=== PATIENT | male | born 1960 | race Caucasian/White ===

== ENCOUNTER 2018-05-10 09:10 | Day surgery (SDC) | payer BC ==
[2018-05-07 11:42] VITALS: BMI 28.8
[2018-05-10] MEDS ORDERED: BUPIVACAINE HCL/EPINEPHRINE/PF 30 ML VIAL IJ ONE (10:39)
[2018-05-10] MEDS ORDERED: MIDAZOLAM HCL 2 MG/2 ML SINGLE DOSE VIAL ONE ×3 (11:07)
[2018-05-10] MEDS ORDERED: PROPOFOL 20 ML ONE ×2 (11:27)
[2018-05-10] MEDS ORDERED: PROMETHAZINE HCL 25 MG/1 ML VIAL IVPUSH PRN (12:44)
[2018-05-10] MEDS ORDERED: oxyCODONE HCL 5 MG TABLET PO PRN (12:44)
[2018-05-10] MEDS ORDERED: ONDANSETRON 4 MG/2 ML VIAL IVPUSH PRN (12:44)
[2018-05-10 14:43] VITALS: TEMP 97.6
[2018-05-10 14:45] VITALS: BP 142/69; PULSE 64
--- NOTE | 2018-05-11 07:53 | OP ---
DATE OF OPERATION: 05/10/2018 SURGEON: Olegario Banda MD ASSISSTANT: PHIL Walters PREOPERATIVE DIAGNOSIS: Right elbow distal biceps rupture. POSTOPERATIVE DIAGNOSIS: Right elbow distal biceps rupture. PROCEDURE: Right elbow open repair of biceps tendon distal rupture. FINDINGS: Avulsed biceps tendon. DESCRIPTION OF PROCEDURE: Informed consent was obtained. The patient was taken to the operating room where the right upper extremity was prepped and draped in a sterile fashion. Tourniquet was placed on the upper arm and inflated to 250 mmHg. A horizontal incision was made 3 cm distal to the elbow volar crease. Fascia was incised. Careful attention was made to avoid damage to neurovascular structures, and the biceps tendon stump was identified. The remnants of scar tissue were debrided, and two No. 2 FiberWires were placed in interlocking [place] stitch. These were tied into the ToggleLoc fixation device. The radial neck was identified, Hohmann exposed, and the insertion of the biceps tendon was identified. Soft issue was removed, and the ToggleLoc system was introduced using a series of drills, 7 mm sizing was made. Using the ToggleLoc system, the device was introduced into the posterior cortex, and the biceps tendon was secured to the bleeding bone bed. This allowed for complete reduction into the bleeding bone bed. Wound was irrigated with copious amounts of irrigation throughout the case. The tourniquet was reduced. There was no evidence of arterial bleeding. Wound was irrigated once again. Layered closure of 2-0 Vicryl and 3-0 Prolene was performed. Sterile dressing was placed. The patient transferred to the recovery room without complication. Splint was placed. MEDICAL NECESSITY FOR WRAPPER SELECTOR: PHIL Walters, was present during the case, and his assistance was medically necessary. He assisted with use of the camera, implanting the implants, and positioning of the arm. Without his assistance, the case could not have been performed. OLEGARIO BANDA M.D. [id number]
--- NOTE | 2018-05-14 10:35 | PATH ---
Surgical Pathology Report Patient Name: ALEX BERG [facility]. Rec. #: [id number] /Age/Gender: 1960 (Age: 58) / M Account: [id number] Location: [facility] Taken: 05/10/2018 Received: 05/10/2018 Reported: 05/14/2018 Physicians: Hubert Shook M.D. Specimen(s) Received RIGHT BICEPS TENDON Clinical History Right elbow distal biceps tendon rupture Final Diagnosis BICEPS TENDON, RIGHT, REPAIR: DENSE FIBROCONNECTIVE TISSUE WITH CHRONIC INFLAMMATION, HEMORRHAGE, GRANULATION TISSUE, AND REACTIVE CHANGES CONSISTENT WITH TENDON RUPTURE. Electronically Signed Lissa Kohler M.D. Gross Description Received in formalin labeled "right biceps tendon," is a 2.5 x 2.0 x 0.3 cm aggregate of multiple gomez portions of fibrous tissue, consistent with portions of tendon. The specimen is submitted in toto in one cassette. 05/13/201805/13/2018
== END 2018-05-10 14:50 | disposition home or self-care (01) ==
LOC: FASU 09:10
PROVIDERS: ATTEND Orthopaedic Surgery
PROC: 0LM30ZZ Reattachment of Right Upper Arm Tendon, Open Approach (ICD-10-PCS; principal; 2018-05-10 11:56)
DX: M66.821 Spontaneous rupture of other tendons, right upper arm (principal)
CPT/HCPCS: 88304-TC; 94760

== ENCOUNTER 2022-09-21 07:38 | Day surgery (SDC) | payer BC, OTHER ==
[2022-09-14 16:45] VITALS: BMI 29.5
[2022-09-21] MEDS ORDERED: ROPIVACAINE HCL 0.5% 30ML VIAL ONE (07:40)
[2022-09-21] MEDS ORDERED: MIDAZOLAM HCL 2 MG/2 ML SINGLE DOSE VIAL ONE (07:42)
[2022-09-21] MEDS ORDERED: PROPOFOL 20 ML ONE (07:42)
[2022-09-21] MEDS ORDERED: ACETAMINOPHEN INJECTION 100 ML IVPB ONE (08:32)
[2022-09-21] MEDS ORDERED: oxyCODONE HCL 5 MG TABLET PO PRN (08:59)
[2022-09-21] MEDS ORDERED: ONDANSETRON 4 MG/2 ML VIAL IVPUSH PRN (08:59)
[2022-09-21] MEDS ORDERED: LACTATED RINGERS SOLUTION 1,000 ML IV SCH (09:00)
[2022-09-21] MEDS ORDERED: DEXAMETHASONE SOD PHOSPHATE 4 MG/1 ML VIAL ONE (09:42)
[2022-09-21] MEDS ORDERED: ceFAZolin SODIUM 1 GM VIAL ONE (09:42)
[2022-09-21] MEDS ORDERED: GLYCOPYRROLATE 0.2 MG/1 ML VIAL ONE (09:42)
[2022-09-21] MEDS ORDERED: LABETALOL HCL 5 MG/1 ML (100MG/20 ML VIAL) ONE (10:09)
[2022-09-21] MEDS ORDERED: ONDANSETRON 4 MG/2 ML VIAL ONE (12:24)
[2022-09-21 16:49] VITALS: TEMP 97.7
[2022-09-21 17:13] VITALS: PULSE 60
[2022-09-21 17:20] VITALS: BP 137/68; RESP 16
== END 2022-09-21 14:40 | disposition home or self-care (01) ==
LOC: FASU 07:38
PROVIDERS: ATTEND Orthopaedic Surgery
PROC: 0RNK4ZZ Release Left Shoulder Joint, Percutaneous Endoscopic Approach (ICD-10-PCS; 2022-09-21)
PROC: 0PBB4ZZ Excision of Left Clavicle, Percutaneous Endoscopic Approach (ICD-10-PCS; 2022-09-21)
PROC: 0LS44ZZ Reposition Left Upper Arm Tendon, Percutaneous Endoscopic Approach (ICD-10-PCS; principal; 2022-09-21 09:53)
DX: M75.122 Complete rotator cuff tear or rupture of left shoulder, not specified as traumatic (principal); M66.812 Spontaneous rupture of other tendons, left shoulder; M75.02 Adhesive capsulitis of left shoulder; M75.42 Impingement syndrome of left shoulder; S43.432A Superior glenoid labrum lesion of left shoulder, initial encounter; X58.XXXA Exposure to other specified factors, initial encounter; Y93.9 Activity, unspecified; Y92.9 Unspecified place or not applicable
CPT/HCPCS: 94760; C1713